=== PATIENT | male | born 1990 | race Caucasian/White ===

== ENCOUNTER 2022-08-27 12:53 | Inpatient (IN) | payer OTHER ==
[2022-08-27 13:19] VITALS: BMI 36.9
[2022-08-27] MEDS ORDERED: POLYETHYLENE GLYCOL (HEALTHYLAX) 3350 17 GM PACKET PO PRN (14:04)
[2022-08-27] MEDS ORDERED: NALOXONE HCL (KLOXXADO) 8 MG SPRAY NS PRN (14:04)
[2022-08-27] MEDS ORDERED: LOPERAMIDE HCL 2 MG CAPSULE PO PRN (14:04)
[2022-08-27] MEDS ORDERED: BENZOCAINE/MENTHOL (CHLORASEPTIC ) LOZENGE MM PRN (14:04)
[2022-08-27] MEDS ORDERED: DICYCLOMINE HCL 10 MG CAPSULE PO PRN (14:04)
[2022-08-27] MEDS ORDERED: IBUPROFEN 400 MG TABLET (FP) PO PRN (14:04)
[2022-08-27] MEDS ORDERED: ONDANSETRON *ODT* 4 MG TABLET SL PRN (14:04)
[2022-08-27] MEDS ORDERED: ACETAMINOPHEN 325 MG TABLET (FP) PO PRN ×2 (14:04)
[2022-08-27] MEDS ORDERED: BISMUTH SUBSALICYLATE 262 MG/15 ML BTL PO PRN (14:04)
[2022-08-27] MEDS ORDERED: MAGNESIUM HYDROX 2400MG/30ML ORAL SUSPENSION 30 ML CUP PO PRN (14:04)
[2022-08-27] MEDS: PRENATAL VITAMINS W/ FOLIC ACID TABLET (FP) PO SCH (14:23)
[2022-08-27] MEDS ORDERED: chlordiazePOXIDE HCL 25 MG CAPSULE PO ONE (14:32)
[2022-08-27] MEDS ORDERED: ONDANSETRON *ODT* 4 MG TABLET ONE (14:33)
[2022-08-27] MEDS: METHOCARBAMOL 500 MG TABLET PO PRN (15:17)
[2022-08-27] MEDS: IBUPROFEN 600 MG TABLET (FP) PO PRN ×2 (15:17→23:01)
[2022-08-27] MEDS: NICOTINE POLACRILEX 2 MG GUM BUC PRN (15:57)
[2022-08-27] MEDS: NICOTINE 10 MG CARTRIDGE (INHALER) IH PRN (16:45)
[2022-08-27] MEDS: chlordiazePOXIDE HCL 25 MG CAPSULE PO SCH ×2 (17:53→22:15)
[2022-08-27] MEDS: hydrOXYzine PAMOATE 25 MG CAPSULE (FP) PO PRN (20:05)
[2022-08-27] MEDS ORDERED: METOPROLOL TARTRATE 50 MG TABLET (FP) PO ONE (21:31)
[2022-08-27] MEDS: GABAPENTIN 300 MG CAPSULE PO SCH (22:14)
[2022-08-27] MEDS: traZODone HCL 50 MG TABLET (FP) PO SCH (22:14)
[2022-08-27] MEDS: THIAMINE HCL 100 MG TABLET (FP) PO SCH (22:15)
[2022-08-27] MEDS: MELATONIN 5 MG TABLETS PO SCH (22:16)
[2022-08-27] MEDS: MAG HYDROX/AL HYDROX/SIMETH 30 ML UNIT-DOSE CUP PO PRN (23:00)
[2022-08-28] MEDS: chlordiazePOXIDE HCL 25 MG CAPSULE PO SCH ×4 (05:26→22:08)
[2022-08-28] MEDS: GABAPENTIN 300 MG CAPSULE PO SCH ×3 (05:26→22:08)
[2022-08-28] MEDS: hydrOXYzine PAMOATE 25 MG CAPSULE (FP) PO PRN ×2 (05:29→10:29)
[2022-08-28] MEDS: NICOTINE 10 MG CARTRIDGE (INHALER) IH PRN ×2 (07:38→17:29)
[2022-08-28 09:58] LABS: CALCIUM 8.5 mg/dL (8.5-10.1)
[2022-08-28 10:00] LABS: ALBUMIN 3.4 g/dl (3.4-5.0); BLOOD UREA NITROGEN 19.1 mg/dL (7-18)
[2022-08-28 10:03] LABS: CREATININE 1.1 mg/dL (0.55-1.3)
[2022-08-28 10:04] LABS: BILIRUBIN,TOTAL 1.5 mg/dL (0.2-1); TOT PROT 6.6 g/dl (6.4-8.2)
[2022-08-28 10:25] LABS: HEMATOCRIT 43.8 % (35.4-49); HEMOGLOBIN 14.6 GM/dL (11.7-16.9); MCH 32.1 pg (25.7-33.7); MCHC 33.3 g/dl (32.0-35.9); MEAN CELL VOLUME 96.3 fl (80-96); MEAN PLT VOLUME 8.7 fl (7.5-11.1); PLATELET COUNT 191 10^3/uL (134-434); RBC 4.55 M/mm3 (4.00-5.60); RDW 13.7 % (11.9-15.9); WHITE BLOOD COUNT 8.2 K/mm3 (4.0-10.0)
[2022-08-28] MEDS: PRENATAL VITAMINS W/ FOLIC ACID TABLET (FP) PO SCH (10:28)
[2022-08-28] MEDS: VENLAFAXINE HCL 75 MG E.R. CAPSULES PO SCH (10:28)
[2022-08-28] MEDS: METHOCARBAMOL 500 MG TABLET PO PRN (10:29)
[2022-08-28] MEDS: NICOTINE POLACRILEX 2 MG GUM BUC PRN (17:30)
[2022-08-28] MEDS: traZODone HCL 50 MG TABLET (FP) PO SCH (22:08)
[2022-08-28] MEDS: THIAMINE HCL 100 MG TABLET (FP) PO SCH (22:08)
[2022-08-28] MEDS: MELATONIN 5 MG TABLETS PO SCH (23:19)
[2022-08-29] MEDS: chlordiazePOXIDE HCL 25 MG CAPSULE PO SCH ×4 (05:34→22:06)
[2022-08-29] MEDS: GABAPENTIN 300 MG CAPSULE PO SCH ×3 (05:34→22:05)
[2022-08-29] MEDS: IBUPROFEN 600 MG TABLET (FP) PO PRN (05:36)
[2022-08-29] MEDS: METHOCARBAMOL 500 MG TABLET PO PRN ×2 (10:32→22:11)
[2022-08-29] MEDS: hydrOXYzine PAMOATE 25 MG CAPSULE (FP) PO PRN ×2 (10:32→22:11)
[2022-08-29] MEDS: PRENATAL VITAMINS W/ FOLIC ACID TABLET (FP) PO SCH (10:32)
[2022-08-29] MEDS: VENLAFAXINE HCL 75 MG E.R. CAPSULES PO SCH (10:32)
[2022-08-29] MEDS: NICOTINE POLACRILEX 2 MG GUM BUC PRN (11:44)
[2022-08-29] MEDS: NICOTINE 10 MG CARTRIDGE (INHALER) IH PRN (17:13)
[2022-08-29] MEDS: traZODone HCL 50 MG TABLET (FP) PO SCH (22:05)
[2022-08-29] MEDS: THIAMINE HCL 100 MG TABLET (FP) PO SCH (22:05)
[2022-08-29] MEDS: MELATONIN 5 MG TABLETS PO SCH (23:05)
[2022-08-30] MEDS: hydrOXYzine PAMOATE 25 MG CAPSULE (FP) PO PRN ×3 (04:27→22:26)
[2022-08-30] MEDS: GABAPENTIN 300 MG CAPSULE PO SCH ×3 (05:19→22:23)
[2022-08-30] MEDS: chlordiazePOXIDE HCL 10 MG CAPSULE PO SCH ×4 (05:19→22:23)
[2022-08-30] MEDS: IBUPROFEN 600 MG TABLET (FP) PO PRN (05:22)
[2022-08-30] MEDS: METHOCARBAMOL 500 MG TABLET PO PRN ×2 (05:22→10:33)
[2022-08-30] MEDS: NICOTINE 10 MG CARTRIDGE (INHALER) IH PRN ×2 (05:35→17:14)
[2022-08-30] MEDS: NICOTINE POLACRILEX 2 MG GUM BUC PRN ×2 (05:37→19:12)
[2022-08-30] MEDS: VENLAFAXINE HCL 75 MG E.R. CAPSULES PO SCH (10:08)
[2022-08-30] MEDS: PRENATAL VITAMINS W/ FOLIC ACID TABLET (FP) PO SCH (10:08)
[2022-08-30] MEDS: traZODone HCL 50 MG TABLET (FP) PO SCH (22:23)
[2022-08-30] MEDS: THIAMINE HCL 100 MG TABLET (FP) PO SCH (22:24)
[2022-08-30] MEDS: MELATONIN 5 MG TABLETS PO SCH (22:25)
[2022-08-31] MEDS: GABAPENTIN 300 MG CAPSULE PO SCH ×3 (05:13→22:19)
[2022-08-31] MEDS: chlordiazePOXIDE HCL 10 MG CAPSULE PO SCH ×2 (05:13→17:30)
[2022-08-31] MEDS: IBUPROFEN 600 MG TABLET (FP) PO PRN ×2 (05:14→22:21)
[2022-08-31] MEDS: hydrOXYzine PAMOATE 25 MG CAPSULE (FP) PO PRN ×3 (05:15→22:20)
[2022-08-31] MEDS: NICOTINE 10 MG CARTRIDGE (INHALER) IH PRN ×2 (08:36→16:08)
[2022-08-31] MEDS: NICOTINE POLACRILEX 2 MG GUM BUC PRN ×2 (08:36→16:08)
[2022-08-31] MEDS: PRENATAL VITAMINS W/ FOLIC ACID TABLET (FP) PO SCH (10:09)
[2022-08-31] MEDS: VENLAFAXINE HCL 75 MG E.R. CAPSULES PO SCH (10:10)
[2022-08-31] MEDS: METHOCARBAMOL 500 MG TABLET PO PRN ×2 (10:10→16:07)
[2022-08-31] MEDS: MAG HYDROX/AL HYDROX/SIMETH 30 ML UNIT-DOSE CUP PO PRN (15:37)
[2022-08-31 20:47] VITALS: RESP 18
[2022-08-31] MEDS: traZODone HCL 50 MG TABLET (FP) PO SCH (22:19)
[2022-08-31] MEDS: THIAMINE HCL 100 MG TABLET (FP) PO SCH (22:19)
[2022-08-31] MEDS: MELATONIN 5 MG TABLETS PO SCH (22:19)
[2022-09-01] MEDS ORDERED: chlordiazePOXIDE HCL 10 MG CAPSULE PO ONE (05:00)
[2022-09-01] MEDS: GABAPENTIN 300 MG CAPSULE PO SCH (05:16)
[2022-09-01] MEDS: IBUPROFEN 600 MG TABLET (FP) PO PRN (05:17)
[2022-09-01] MEDS: PRENATAL VITAMINS W/ FOLIC ACID TABLET (FP) PO SCH (09:18)
[2022-09-01] MEDS: VENLAFAXINE HCL 75 MG E.R. CAPSULES PO SCH (09:19)
[2022-09-01] MEDS: hydrOXYzine PAMOATE 25 MG CAPSULE (FP) PO PRN (09:19)
[2022-09-01 09:34] VITALS: BP 135/77; PULSE 94; TEMP 97.8
== END 2022-09-01 10:00 | disposition home or self-care (01) | DRG 897 ==
LOC: YASAS 12:53 → Y6N 14:46
PROVIDERS: ADMIT Allergy & Immunology; ATTEND Surgery
PROC: HZ2ZZZZ Detoxification Services for Substance Abuse Treatment (ICD-10-PCS; principal; 2022-08-27)
DX: F10.230 Alcohol dependence with withdrawal, uncomplicated (principal); S22.32XA Fracture of one rib, left side, initial encounter for closed fracture; F33.9 Major depressive disorder, recurrent, unspecified; E22.1 Hyperprolactinemia; F12.20 Cannabis dependence, uncomplicated; F17.210 Nicotine dependence, cigarettes, uncomplicated; F90.9 Attention-deficit hyperactivity disorder, unspecified type; W19.XXXA Unspecified fall, initial encounter; Y93.9 Activity, unspecified; Y92.9 Unspecified place or not applicable; Z91.81 History of falling
CPT/HCPCS: 36415; 71046-TC-FY; 71101-TC-LT-FY; 80053; 84146; 85027; 86780; C9803-CS; Q0162; U0003; U0005